=== PATIENT | female | born 1950 | race Hispanic/Latino ===

== ENCOUNTER 2023-11-30 16:36 | Emergency (ER) | payer MEDICARE ==
[~2023-11-30] VITALS: Ht 160 cm; Wt 72.6 kg
[2023-11-30 20:48] VITALS: BP 152/74; PULSE 87; RESP 18; O2SAT 98
[2023-11-30] MEDS ORDERED: FLUORESCEIN SODIUM 1 STRIP STRIP OP SCH (21:00)
[2023-11-30] MEDS ORDERED: TETRACAINE HCL 0.5% 4 ML OPHTH SOLN OP SCH (21:00)
[2023-11-30] MEDS ORDERED: DICL2.5D7 OS (21:18)
[2023-11-30] MEDS ORDERED: POLYOS OS (21:18)
== END 2023-11-30 21:29 | disposition home or self-care (01) ==
LOC: EDH 16:36
DX: S05.02XA Injury of conjunctiva and corneal abrasion without foreign body, left eye, initial encounter (principal); Z98.890 Other specified postprocedural states; X58.XXXA Exposure to other specified factors, initial encounter; Y93.89 Activity, other specified; Y92.89 Other specified places as the place of occurrence of the external cause; Y99.8 Other external cause status